=== PATIENT | male | born 1990 | race African-American/Black ===

== ENCOUNTER 2025-04-15 06:55 | Observation (INO) ==
--- NOTE | 2025-04-15 07:17 | Emergency Department Note ---
Impression & Plan Rectal bleeding, LLQ abdominal pain ED Provider Note NAME: FLETCHER GLASS AGE: 34 SEX: M : 1990 ARRIVES VIA: Walk-In INFORMANT: [Patient] ED PROVIDER(S): [Ernesto Zimmerman MD] CHIEF COMPLAINT: Abdominal pain, rectal bleeding HISTORY OF PRESENT ILLNESS: The patient is a 34-year-old male who states that a few days ago, he had a bowel movement and there was blood mixed with his stool. Yesterday evening, he began having increased amounts of blood and a few times, when having a bowel movement, he just passed blood. He has noticed some diffuse abdominal pain as well. He also has rectal pain. There has been no fever, no nausea or vomiting, he did not faint. He is not short of breath. He is not on blood thinning agents. No history of previous GI bleeding. PMHx/PSHx/Social Hx: See Below PHYSICAL EXAM: GENERAL: Patient is in no acute distress. HEENT: No acute trauma, normocephalic atraumatic, mucous membranes moist, no nasal congestion. NECK: No stridor, no adenopathy, no meningismus, trachea is midline. LUNGS: Clear to auscultation bilaterally, no wheeze, no rhonchi, breath sounds equal. HEART: Without murmurs gallops or rubs, regular rate and rhythm. ABDOMEN: Soft, tender in the left lower quadrant with palpation. No distention. EXTREMITIES: No cyanosis, full range of motion of all the joints without pain or difficulty. NEUROLOGIC: Oriented x 3, no acute motor or sensory deficits, no focal weakness. SKIN: No jaundice, no diaphoresis. Rectal: This exam was done with a securities sales associate. There was no external source for bleeding. No hemorrhoid or anal tear. Digital exam did not reveal any masses but there was some bright red blood that did of course test positive. Stool seemed brown. DIFFERENTIAL DIAGNOSIS: Diverticulitis, diverticular bleeding, internal hemorrhoid, proctitis, anemia, among others. EMERGENCY DEPARTMENT PROCEDURES: MEDICAL DECISION MAKING: There is no leukocytosis. A very mild anemia was seen with a hemoglobin of 13.6. There was a normal platelet count. No bandemia. No coagulopathy. No renal failure or significant electrolyte abnormality. No concerning liver enzyme elevation. Abdominal and pelvis CT did not show any diverticulitis or acute surgical process. No source for bleeding by CT imaging. On exam, there was no external/anal source for his bleeding. Digital rectal exam did show bright red blood per rectum with some brown stool. The patient received IV saline for hydration. He was given IV Zofran, IV morphine and eventually IV Dilaudid. He was given IV Pepcid. Patient presents with left lower quadrant abdominal pain and bright red blood per rectum. The source for the bleeding at this point is not clear. Given the pain and ongoing bleeding, I do think admission/observation would be warranted. The patient's hemoglobin can be trended. I did speak with the patient and case management, the on-call hospitalist was consulted. Prior/Outside records/notes reviewed: None ECG per my interpretation: Indication was GI bleeding. The ECG shows a normal sinus rhythm with a rate of 63. There is some sinus arrhythmia. There is no acute ST elevation, no PVCs. The QTc is 401. Continuous Cardiac Monitoring per my interpretation: An order was placed for continuous cardiac monitoring. The monitor shows a rate of 77 with normal sinus rhythm. Imaging/x-ray results per my interpretation: Chronic Medical/Social conditions affecting care: None Care/Management discussed with: Case management, the on-call hospitalist. Level of care consideration(s): After review of the information above and other included data: --I believe the patient requires escalation of care to admission DISPOSITION: Admission Past Med/Surg History Problem List (Updated 04/15/25 @ 14:55 by Ernesto Zimmerman MD) LLQ abdominal pain (Acute) Rectal bleeding (Acute) Abdominal pain Medical History Hematochezia Social History Smoking Status: Current every day smoker Tobacco Type: Cigarettes Second Hand Exposure: Yes; Do You Dip or Chew Tobacco: No; Hx Alcohol Use: No Hx Substance Use: No Preferred Language: Citizen Of [place] Communication Ability: Effective Worship Pastor Required: No Beliefs That Will Affect Care: None Current Living Situation: Alone Feels Safe at Home: Yes Assistive Devices: None Allergies Allergies Allergy/AdvReac Type Severity Reaction Status Date / Time No Known Allergies Allergy Unverified 04/15/25 09:54 Home Meds Home Medications Medication Instructions Recorded Confirmed No Known Home Medications 04/15/25 04/15/25 Results & Data (ED) Vital Signs Vital Signs - 24 hr 04/15/25 06:58 04/15/25 07:20 04/15/25 07:20 Temperature 36.1 C L 36.8 C Temperature Source Temporal Artery Scan Oral Pulse Rate 77 68 Pulse Rate [Right Finger] 66 Respiratory Rate 16 18 18 Respiratory Effort / Characteristics Non-Labored Spontaneous Respiratory Depth Normal Normal Blood Pressure 149/103 H Blood Pressure [Right Arm] 136/91 Blood Pressure Mean 118 Blood Pressure Mean [Right Arm] 106 Pulse Oximetry 99 98 99 Oxygen Delivery Method Room Air Room Air Room Air Sepsis Recent Fever Within 48 Hours No Sepsis New/Unexplained Change in Mental Status No Sepsis Action Taken by Nursing No Action Required 04/15/25 08:18 04/15/25 09:00 Temperature Temperature Source Pulse Rate 65 Pulse Rate [Right Finger] 67 Respiratory Rate 16 Respiratory Effort / Characteristics Respiratory Depth Normal Blood Pressure Blood Pressure [Right Arm] 127/83 Blood Pressure Mean Blood Pressure Mean [Right Arm] 97 Pulse Oximetry 98 Oxygen Delivery Method Sepsis Recent Fever Within 48 Hours Sepsis New/Unexplained Change in Mental Status Sepsis Action Taken by Group Home Medications Current Medication List: was personally reviewed by me Laboratory Data Attestation: I reviewed the patient's lab results. 04/15/25 07:26 04/15/25 07:26 Lab Results 04/15/25 04/15/25 04/15/25 Range/Units 07:13 07:23 07:26 WBC 7.23 (4.8-10.8) K/ul RBC 4.98 (4.70-6.10) M/uL Hgb 13.6 L (14.0-18.0) g/dl Hct 41.5 L (42.0-52.0) % MCV 83.3 (80.0-100.0) fL MCH 27.3 (25.0-34.0) pg MCHC 32.8 (32.0-36.0) g/dL RDW Std Deviation 42.5 (36.4-46.3) fL RDW Coeff of Rubi 13.9 (11.5-14.5) % Plt Count 210 (130-400) K/uL MPV 12.0 (9.4-12.4) fL Immature Gran % (Auto) 0.1 % Neut % (Auto) 59.1 % Lymph % (Auto) 28.9 % [place] % (Auto) 6.8 % Eos % (Auto) 4.7 % Baso % (Auto) 0.4 % Neut # (Auto) 4.27 (1.40-6.50) K/uL Lymph # (Auto) 2.09 (1.20-3.40) K/uL [place] # (Auto) 0.49 (0.11-0.59) K/uL Eos # (Auto) 0.34 (0.00-0.50) K/uL Baso # (Auto) 0.03 (0.00-0.20) K/uL Immature Gran # (Auto) 0.01 (0.01-0.20) K/uL PT Cancelled INR Cancelled APTT Cancelled PTT Ratio Cancelled Sodium 138 (136-145) mmol/L Potassium 4.1 (3.5-5.1) mmol/L Chloride 106 (98-107) mmol/L Carbon Dioxide 27 (21-32) mmol/L Anion Gap 5 (3-11) BUN 14 (6-23) mg/dl Creatinine 1.09 (0.6-1.4) mg/dl Est Cr Clr Drug Dosing 97.7 ml/min eGFR 91.33 BUN/Creatinine Ratio 12.8 (10-20) Glucose 94 (70-99(Fasting)) mg/dl Calcium 8.8 (8.6-10.3) mg/dl Total Bilirubin 0.6 (0.2-1.0) mg/dl AST 48 H (13-39) U/L ALT 41 (7-52) U/L Alkaline Phosphatase 67 (34-104) U/L Total Protein 6.8 (6.0-8.3) gm/dl Albumin 4.4 (3.4-5.0) gm/dl Globulin 2.4 L (2.5-4.0) gm/dl Albumin/Globulin Ratio 1.8 (0.9-2) POC Stool Occult Blood Positive A (Negative) Blood Type A Positive Antibody Screen NEGATIVE 04/15/25 Range/Units 08:58 WBC (4.8-10.8) K/ul RBC (4.70-6.10) M/uL Hgb (14.0-18.0) g/dl Hct (42.0-52.0) % MCV (80.0-100.0) fL MCH (25.0-34.0) pg MCHC (32.0-36.0) g/dL RDW Std Deviation (36.4-46.3) fL RDW Coeff of Rubi (11.5-14.5) % Plt Count (130-400) K/uL MPV (9.4-12.4) fL Immature Gran % (Auto) % Neut % (Auto) % Lymph % (Auto) % [place] % (Auto) % Eos % (Auto) % Baso % (Auto) % Neut # (Auto) (1.40-6.50) K/uL Lymph # (Auto) (1.20-3.40) K/uL [place] # (Auto) (0.11-0.59) K/uL Eos # (Auto) (0.00-0.50) K/uL Baso # (Auto) (0.00-0.20) K/uL Immature Gran # (Auto) (0.01-0.20) K/uL PT 10.6 INR 1.0 APTT 30 PTT Ratio 1.1 Sodium (136-145) mmol/L Potassium (3.5-5.1) mmol/L Chloride (98-107) mmol/L Carbon Dioxide (21-32) mmol/L Anion Gap (3-11) BUN (6-23) mg/dl Creatinine (0.6-1.4) mg/dl Est Cr Clr Drug Dosing ml/min eGFR BUN/Creatinine Ratio (10-20) Glucose (70-99(Fasting)) mg/dl Calcium (8.6-10.3) mg/dl Total Bilirubin (0.2-1.0) mg/dl AST (13-39) U/L ALT (7-52) U/L Alkaline Phosphatase (34-104) U/L Total Protein (6.0-8.3) gm/dl Albumin (3.4-5.0) gm/dl Globulin (2.5-4.0) gm/dl Albumin/Globulin Ratio (0.9-2) POC Stool Occult Blood (Negative) Blood Type Antibody Screen Administered Medications Acetaminophen (Acetaminophen 500 Mg Tab) 1,000 mg PO TID PRN PRN Reason: Pain Stop: 05/15/25 13:59 Last Admin: 04/15/25 11:49 Dose: 1,000 mg Documented By: YOKO Lactated Ringer's (Lr) 1,000 mls @ 125 mls/hr IV .Q8H NATALIIA Stop: 04/16/25 05:10 Last Admin: 04/15/25 13:42 Dose: 125 mls/hr Documented By: DAYSI Discontinued Medications Hydromorphone HCl (Hydromorphone Inj 0.5 Mg/0.5 Ml Syr) 0.5 mg IV NOW STA Stop: 04/15/25 08:41 Last Admin: 04/15/25 08:45 Dose: 0.5 mg Documented By: truong Sodium Chloride (Nss) 1,000 mls @ 999 mls/hr IV .Q1H1M NATALIIA Stop: 04/15/25 08:15 Last Infusion: 04/15/25 08:43 Dose: Infused Documented By: truong Admin: 04/15/25 07:48 Dose: 999 mls/hr Documented By: truong Famotidine (Pepcid 20mg Iv Push) 20 mg in 5 mls @ 2.5 mls/min IV NOW STA Stop: 04/15/25 07:14 Last Admin: 04/15/25 07:44 Dose: 2.5 mls/min Documented By: truong Ioversol (Optiray 320 100ml) 94 ml IV ONCE ONE Stop: 04/15/25 08:32 Last Admin: 04/15/25 08:31 Dose: 94 ml Documented By: ANAM Morphine Sulfate (Morphine Sulfate 4 Mg/Ml 1 Ml Carp\Vial) 4 mg IV NOW STA Stop: 04/15/25 07:14 Last Admin: 04/15/25 07:43 Dose: 4 mg Documented By: truong Ondansetron HCl (Ondansetron Inj 2 Mg/Ml 2 Ml Vial) 4 mg IV ONE STA Stop: 04/15/25 07:14 Last Admin: 04/15/25 07:44 Dose: 4 mg Documented By: truong Pantoprazole Sodium (Pantoprazole 40 Mg Tab) 40 mg PO NOW STA Stop: 04/15/25 13:12 Last Admin: 04/15/25 13:47 Dose: 40 mg Documented By: DAYSI Imaging Data Radiologist's Impression: Abdomen/Pelvis CT 04/15/25 07:13 CT SCAN OF THE ABDOMEN AND PELVIS WITH IV CONTRAST CLINICAL HISTORY: Hematochezia. Left lower quadrant abdominal pain. COMPARISON STUDY: No priors TECHNIQUE: Following the IV administration of 94 cc of Optiray 320, CT scan of the abdomen and pelvis is performed from the lung bases to the proximal femora. Images are reviewed in the axial, sagittal, and coronal planes. IV contrast was administered without complication. A dose lowering technique was utilized adhering to the principles of ALARA. CT DOSE: 850.84 mGy.cm FINDINGS: Lung bases: The heart is normal in size and without pericardial effusion. The lung bases are clear. Liver: The contrast-enhanced liver is normal in size, contour, and attenuation. There is no intrahepatic biliary ductal dilatation. The hepatic veins and portal veins are patent. Gallbladder: Unremarkable. Spleen: Normal in size and attenuation. Pancreas: Unremarkable. Adrenal glands: Unremarkable. Kidneys: The contrast enhanced kidneys are normal in size and without hydronephrosis. The kidneys enhance symmetrically. Abdominal vasculature: The abdominal aorta is normal in course and caliber. Bowel: There is no bowel obstruction. The appendix is no identified and postsurgical changes seen adjacent to cecum. Peritoneum: There is no intraperitoneal free air or abdominal ascites. There is a fat-containing umbilical hernia. Lymphadenopathy: None. Pelvic viscera: The bladder, prostate, and seminal vesicles are normal as visualized. Skeletal structures: No lytic or blastic lesions are seen. IMPRESSION: No acute infectious or inflammatory findings are identified in the abdomen or pelvis. ACT 112: Negative or not required by law. Electronically signed by: Ernesto Breaux M.D. 04/15/2025 8:55 AM Discharge Plan Visit Data Chief Complaint: Abdominal Pain Stated Complaint: STOMACH PAIN AND BLOOD IN STOOL ED Provider: Ernesto Zimmerman Discharge Problem: Rectal bleeding, LLQ abdominal pain Patient Disposition: Admitted As Inpatient Condition: Fair Discharge Instructions Interventions: ED Discharge Assessment Last Done: 04/15/25 12:46
[2025-04-15] MEDS: MoRPHine SULFATE 4 MG/ML 1 ML CARP\\VIAL IV STA (07:43)
[2025-04-15] MEDS: ONDANSETRON INJ 2 MG/ML 2 ML VIAL IV STA (07:44)
[2025-04-15] MEDS: FAMOTIDINE 20MG IV PUSH 20 MG/5 ML SYR IV STA (07:44)
[2025-04-15] MEDS: SODIUM CHLORIDE 0.9% 1,000 ML IV SCH (07:48)
[2025-04-15 08:03] LABS: Hematocrit (blood only) 41.5 % (42.0-52.0); Hemoglobin 13.6 g/dl (14.0-18.0); Immature Granulocytes # (auto) 0.01 K/uL (0.01-0.20); Immature Granulocytes % (auto) 0.1 %; Mean Corpuscular Hemoglobin 27.3 pg (25.0-34.0); Mean Corpuscular Volume 83.3 fL (80.0-100.0); Platelet Count 210 K/uL (130-400); RDW Standard Deviation 42.5 fL (36.4-46.3); Red Blood Count 4.98 M/uL (4.70-6.10); White Blood Count 7.23 K/ul (4.8-10.8)
[2025-04-15 08:23] LABS: Alanine Aminotransferase 41.0 U/L (7-52); Albumin Globulin Ratio 1.8 (0.9-2); Alkaline Phosphatase 67.0 U/L (34-104); Anion Gap 5.0 (3-11); Bilirubin,Total 0.6 mg/dl (0.2-1.0); Blood Urea Nitrogen 14.0 mg/dl (6-23); Calcium 8.8 mg/dl (8.6-10.3); Carbon Dioxide 27.0 mmol/L (21-32); Chloride 106.0 mmol/L (98-107); Creatinine Clr Calc Pharmacy 97.7 ml/min; Globulin 2.4 gm/dl (2.5-4.0); Glucose 94.0 mg/dl (70-99(Fasting)); Potassium 4.1 mmol/L (3.5-5.1); Sodium 138.0 mmol/L (136-145); Total Protein 6.8 gm/dl (6.0-8.3)
[2025-04-15] MEDS: OPTIRAY 320 100ml IV ONE (08:31)
[2025-04-15] MEDS: HYDROmorphone INJ 0.5 MG/0.5 ML SYR IV STA (08:45)
--- NOTE | 2025-04-15 08:57 | CT Scan Report ---
CT SCAN OF THE ABDOMEN AND PELVIS WITH IV CONTRAST CLINICAL HISTORY: Hematochezia. Left lower quadrant abdominal pain. COMPARISON STUDY: No priors TECHNIQUE: Following the IV administration of 94 cc of Optiray 320, CT scan of the abdomen and pelvi s is performed from the lung bases to the proximal femora. Images are reviewed in the axial, sagittal , and coronal planes. IV contrast was administered without complication. A dose lowering technique wa s utilized adhering to the principles of ALARA. CT DOSE: 850.84 mGy.cm FINDINGS: Lung bases: The heart is normal in size and without pericardial effusion. The lung bases are clear. Liver: The contrast-enhanced liver is normal in size, contour, and attenuation. There is no intrahepa tic biliary ductal dilatation. The hepatic veins and portal veins are patent. Gallbladder: Unremarkable. Spleen: Normal in size and attenuation. Pancreas: Unremarkable. Adrenal glands: Unremarkable. Kidneys: The contrast enhanced kidneys are normal in size and without hydronephrosis. The kidneys enh ance symmetrically. Abdominal vasculature: The abdominal aorta is normal in course and caliber. Bowel: There is no bowel obstruction. The appendix is no identified and postsurgical changes seen ad jacent to cecum. Peritoneum: There is no intraperitoneal free air or abdominal ascites. There is a fat-containing umbi lical hernia. Lymphadenopathy: None. Pelvic viscera: The bladder, prostate, and seminal vesicles are normal as visualized. Skeletal structures: No lytic or blastic lesions are seen. IMPRESSION: No acute infectious or inflammatory findings are identified in the abdomen or pelvis. ACT 112: Negative or not required by law. Electronically signed by: Ernesto Breaux M.D. 04/15/2025 8:55 AM
[2025-04-15 09:40] LABS: INR 1.0 (0.9-1.1); Partial Thromboplastin Time 30 Seconds (21-31); Prothrombin Time 10.6 Seconds (9.0-12.0)
--- NOTE | 2025-04-15 10:50 | History & Physical Report ---
Date of Service April 15, 2025 Assessment & Plan (1) Hematochezia: (2) Abdominal pain: Plan 34-year-old male with a history of intermittent rectal bleeding according to him who is not from the area who presents with abdominal pain and hematochezia. #Abdominal pain hematochezia. Patient will have stool BioFire and C. difficile testing. He lactated Ringer's. IV famotidine and p.o. pantoprazole. He is recommended strongly to have an outpatient colonoscopy scheduled once he returns to his home repeat laboratories in the morning to see if hemoglobin drops if so we may consider consultation with gastroenterology. 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 Patient presents with bright red blood per rectum. Patient says he intermittently has this issue and was supposed to have an endoscopy a year ago but did not follow through. Patient states that he was feeling fine until he ate some spicy noodles a week ago he became significantly constipated. That resolved on its own and then 1 day prior to presentation he felt early satiety and fullness. He then began having bright red blood per rectum and presents. Patient has had no fevers or chills. He denies drinking any untreated water although he is working very remotely on this pipeline. He has had no recent weight loss he has no family history of colon malignancy or inflammatory bowel disease. He has had an appendectomy. He said no other changes in his health with exception of some darkened urine which coincided with his constipation is a since resolved. In the emergency department the patient has a normal white count stable hemoglobin and a CT abdomen pelvis without comment of inflammation of the colon. Rectal exam performed by the emergency room physician showed bright red blood but no masses. Emergency room request observation for bright red blood per rectum and abdominal pain. The patient did require parenteral opiates in the emergency department. Allergies Allergy/AdvReac Type Severity Reaction Status Date / Time No Known Allergies Allergy Unverified 04/15/25 09:54 Home Medications Medication Instructions Recorded Confirmed Type No Known Home Medications 04/15/25 04/15/25 History Past Med/Surg History Problem List (Updated 04/15/25 @ 10:49 by John Paul Bellamy MD) Abdominal pain Hematochezia Social History Smoking Status: Current every day smoker Preferred Language: Czech Feels Safe at Home: Yes Physical Exam Physical Exam: The patient appeared well nourished and normally developed. Vital signs as documented. Head exam is normocephalic atraumatic Neck is without JVD, thyromegaly, or carotid bruits. Lungs are clear to auscultation, no focal loss of breath sounds Cardiac exam, Rhythm is regular.. No murmurs, rubs or gallops. Abdominal exam reveals normal bowel sounds soft abdomen some mild epigastric pain and some mild left lower quadrant pain no rebound or guarding. Extremities are nonedematous and both pedal pulses are present Neurologic exam is alert and oriented, no focal loss of strength or sensation Skin is without bruises or rashes Psychologically is without concerns for anxiety or depression.. Results & Data Results & Data Vital Signs (Past 12 Hours) Vital Signs Temp Pulse Pulse Resp BP BP Pulse Ox 04/15/25 09:00 67 16 127/83 98 04/15/25 08:18 65 04/15/25 07:20 68 18 99 04/15/25 07:20 98.2 F 66 18 136/91 98 04/15/25 06:58 97.0 F L 77 16 149/103 H 99 O2 Del Method 04/15/25 09:00 04/15/25 08:18 04/15/25 07:20 Room Air 04/15/25 07:20 Room Air 04/15/25 06:58 Room Air Laboratory Results Reviewed CBC reviewed chemistry reviewed CT scan Reviewed EKG showing sinus rhythm to sinus bradycardia Ordered stool BioFire and C. difficile testing Code Status & VTE Plan VTE Prophylaxis Plan VTE Prophylaxis will be ordered: Yes PG Care Time/CCT Total # of Minutes Spent Total Time Spent with Patient: Total time spent is greater than 50% in coordination of care (as documented) at patient's floor/unit and/or counseling patient: Coding Level of Care Code 10246 INT INP/OBS CARE 2/55MIN Diagnoses Hematochezia K92.1 Abdominal pain R10.9
[2025-04-15] MEDS: ACETAMINOPHEN 500 MG TAB PO PRN (11:49)
[2025-04-15] MEDS ORDERED: ALUMINUM/MAGNESIUM SUSP 30 ML UDC PO PRN (13:11)
[2025-04-15] MEDS ORDERED: ONDANSETRON INJ 2 MG/ML 2 ML VIAL IV PRN (13:11)
[2025-04-15] MEDS: LACTATED RINGER'S 1,000 ML IV SCH (13:42)
[2025-04-15] MEDS: MoRPHine SULFATE 2 MG/ML CARP IV PRN (19:02)
[2025-04-15] MEDS: POLYETHYLENE (MIRALAX) 17 GM PACK PO PRN (20:48)
[2025-04-15] MEDS: FAMOTIDINE 20 MG TAB PO SCH (20:48)
[2025-04-16 07:13] LABS: Hematocrit (blood only) 39.2 % (42.0-52.0); Hemoglobin 12.6 g/dl (14.0-18.0); Mean Corpuscular Hemoglobin 27.2 pg (25.0-34.0); Mean Corpuscular Volume 84.5 fL (80.0-100.0); Platelet Count 201 K/uL (130-400); RDW Standard Deviation 42.5 fL (36.4-46.3); Red Blood Count 4.64 M/uL (4.70-6.10); White Blood Count 5.47 K/ul (4.8-10.8)
[2025-04-16 08:06] LABS: Anion Gap 5.0 (3-11); Blood Urea Nitrogen 11.0 mg/dl (6-23); Calcium 8.6 mg/dl (8.6-10.3); Carbon Dioxide 27.0 mmol/L (21-32); Chloride 106.0 mmol/L (98-107); Creatinine Clr Calc Pharmacy 87.3 ml/min; Glucose 112.0 mg/dl (70-99(Fasting)); Potassium 4.4 mmol/L (3.5-5.1); Sodium 138.0 mmol/L (136-145)
[2025-04-16] MEDS: KETOROLAC TROMETHAMINE 15 MG/ML VIAL IV PRN (09:24)
[2025-04-16] MEDS: POLYETHYLENE (MIRALAX) 17 GM PACK PO SCH (09:30)
[2025-04-16] MEDS: HYDROCORTISONE ACETATE 25 MG SUPP PR ONE (09:46)
--- NOTE | 2025-04-16 09:57 | Gastrointestinal Consultation ---
Date of Consultation April 16, 2025 Assessment & Plan (1) Rectal bleeding: (2) Abdominal pain: Plan Patient admitted with complaints of abdominal pain and rectal bleeding that he has had on and off for the past year. I had discussed the case with Dr. Mohan. - Would recommend that he pursue a colonoscopy in the outpatient setting. -Further recommendations to come with Supervising GI provider on medical rounds. Please see co-signature comments. Supervising Physician Co-Signing Physician Notes Hospital labs, data, records and imaging reviewed. The case was discussed with the GI LING and I agree with his assessment plan as outlined above. The patient has rectal bleeding which is most likely anal outlet in nature with relatively stable hemoglobin. He is a globally low risk for colorectal cancer. Colonoscopy is warranted for definitive evaluation however. This is recommended on an outpatient basis. A high-fiber diet while maintaining regular soft stools is recommended. The patient was discharged prior to a direct bedside evaluation. History of Present Illness Reason for Consultation: Pt request hematochezia Requesting Physician: John Paul Bellamy MD Attending Physician: Naresh Penaloza MD History of Present Illness Patient is a 34 year old male who presented to the ED on 04/15/25 for evaluation of abdominal pain and rectal bleeding that he has had intermittently over the past year. he admits that these symptoms come and go. He is originally from [place] and was supposed to have a colonoscopy there but did not have done secondary to insurance issues. 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 he tells me that he can get his stomach pain several days a week, but not every day. Bleeding can also come and go. He denies any family history of IBD. Upon work up in the ED, he had CT that was unremarkable. Initially hgb was 13.6. stools tested positive for blood in the ED. Since admission, he tells me that he still has some abdominal discomfort. The remainder of the GI ROS were unremarkable. 04/15/25 No acute infectious or inflammatory findings are identified in the abdomen or pelvis. 04/16/25 wbc 5.47, hgb 12.6, hct 39.2, plts 201, Na 138, K 4.4, BUN 11, Cr 1.21. stool studies pending. Allergies Allergy/AdvReac Type Severity Reaction Status Date / Time No Known Allergies Allergy Unverified 04/15/25 09:54 Home Medications Medication Instructions Recorded Confirmed Type hydrocortisone acetate 25 mg 25 mg NM BID 10 days #19 ea 04/16/25 Rx rectal suppository (Anusol-HC) pantoprazole 40 mg tablet,delayed 40 mg PO BID #60 tabs 04/16/25 Rx release Patient History Medical History Hematochezia Social History Smoking Status: Current every day smoker Tobacco Type: Cigarettes Second Hand Exposure: Yes; Do You Dip or Chew Tobacco: No; Hx Alcohol Use: No Hx Substance Use: No Preferred Language: Latvian Communication Ability: Effective Tree Worker Required: No Beliefs That Will Affect Care: None Current Living Situation: Alone Feels Safe at Home: Yes Assistive Devices: None Review of Systems Review of Systems: All systems reviewed & are unremarkable except as noted in HPI & below Physical Exam Constitutional: WD/WN, vitals as above Respiratory: normal respiratory effort, lungs clear to auscultation Cardiovascular: Rate/Rhythm: regular rate and regular rhythm Gastrointestinal (Abdomen): left sided tenderness to palpation, no guarding, soft, normal bowel sounds. Psychiatric: Orientation: alert and oriented x 3 Results & Data Vital Signs (Past 12 Hours) Vital Signs Temp Pulse Resp BP Pulse Ox O2 Del Method 04/16/25 07:16 97.7 F 63 16 119/73 98 Room Air 04/15/25 21:55 97.9 F 60 16 113/73 98 Room Air Coding Level of Care Code 65803 IN/OBS CONSULT LVL 4,60M Diagnoses Rectal bleeding K62.5 Abdominal pain R10.9
[2025-04-16 10:02] LABS: Adenovirus F 40/41 PCR Not Detected (NotDetected); Campylobacter PCR Not Detected (NotDetected); Enteroaggregative E.coli(EAEC) Not Detected (NotDetected); Shiga-like Toxin E.coli (STEC) Not Detected (NotDetected); Vibrio species PCR Not Detected (NotDetected)
--- NOTE | 2025-04-16 10:58 | Discharge Summary ---
Discharge Summary Date of Service April 16, 2025 Principal Dx & Hospital Course #1 = Principal Diagnosis (1) Hematochezia: (2) Abdominal pain: Plan 34-year-old male with a history of intermittent rectal bleeding according to him who is not from the area who presents with abdominal pain and hematochezia. #Abdominal pain/ hematochezia. CTAP negative. CBC w/ stable hgb of 12.6, 1g drop overnight secondary to diluation from IVF. BMP w/ stable renal function & electrolytes Stool biofire negative for acute infection. GI consulted --> recommending outpatient colonoscopy. Start Senna S tablets on discharge to help w/ constipation as this is suspected of being underlying cause of abdominal pain. Patient will require a CN in his home state as he is traveling for work at this time. Discussed w/ patient to notify his PCP of this. Pantoprazole sent on discharge to aide with GERD symptoms. Anusol suppositories on discharge to aide w/ internal hemorrhoids. Discharged home 04/16. 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 Patient presents with bright red blood per rectum. Patient says he intermittently has this issue and was supposed to have an endoscopy a year ago but did not follow through. Patient states that he was feeling fine until he ate some spicy noodles a week ago he became significantly constipated. That resolved on its own and then 1 day prior to presentation he felt early satiety and fullness. He then began having bright red blood per rectum and presents. Patient has had no fevers or chills. He denies drinking any untreated water although he is working very remotely on this pipeline. He has had no recent weight loss he has no family history of colon malignancy or inflammatory bowel disease. He has had an appendectomy. He said no other changes in his health with exception of some darkened urine which coincided with his constipation is a since resolved. In the emergency department the patient has a normal white count stable hemoglobin and a CT abdomen pelvis without comment of inflammation of the colon. Rectal exam performed by the emergency room physician showed bright red blood but no masses. Emergency room request observation for bright red blood per rectum and abdominal pain. The patient did require parenteral opiates in the emergency department. Discharge Exam General: NAD, VS as above Resp: normal respiratory effort abd: lower abdominal tenderness to palpation. hypoactive BS. Extremities: Moves all extremities, no edema Neuro: A&O x3, Skin: intact, no lesions noted Discharge Plan Discharge Items Patient Disposition: Home - Self-Care Reason For Visit: HEMATOCHEZIA, ABD PAIN Discharge Diagnosis: Constipation, rectal bleeding. Condition on Discharge: Fair Activity: Resume your previous activity Non-emergency contact: Primary Care Provider Call non-emergency contact if: you have any medication questions, your symptoms worsen and you have a fever Follow-up/Referrals: PCP,NO [Primary Care Provider] - Diet: Low Fiber Addtl Attending Provider Instructions: Mr. Real, You were recently hospitalized secondary to abdominal pain and rectal bleeding. Your CAT scan of your abdomen has been negative. Medications: Medications that have been sent to your pharmacy: Pantoprazole 40mg twice daily - this medication is to help with indigestion/abdominal discomfort/GERD. Please take this first thing in the morning and prior to bed. Anusol suppository twice daily for 10 days. - your next dose will be this evening prior to bed. This will help with your rectal bleeding if it is secondary to internal hemorrhoids. OTC medications recommended to be picked up include: SennaS, Please take 1-2 tablets once daily until bowels return to normal and it does not cause pain to have a bowel movement. Take your medications as instructed; do not skip a dose of your medicines. Make sure all of your doctors know every medicine you are taking (including ovfy-kea-dlrxmus medicines, vitamins, and supplements). Call your primary care provider before taking any new medicines (including over- the-counter medicines, vitamins, and supplements), because some of these may interact with your current medications, or may make your symptoms worse. Tell your primary care provider if you cannot afford your medications. Activity: You can do normal everyday activities as your body allows. Take rest breaks if you feel tired. Do not overexert. Stop activity if you have pain, shortness of breath or feel dizzy. Follow-up appointments: Make an appointment with your primary care physician within one week of disch arge. A copy of this summary will be sent to them. Every time you see your primary care physician, or any other doctor, bring your medication list, and a list of questions. Please establish care with a communications maintainer at your home location. You will require a colonoscopy for further investigation on an outpatient basis. CONTACT YOUR PRIMARY CARE PROVIDER if you experience any of the following: Shortness of breath or difficulty breathing Fevers or chills Feeling tired with normal activity or experiencing dizziness or fainting Difficulty following your treatment plan, or difficulty taking medications CALL 911 OR GO TO THE EMERGENCY DEPARTMENT if you experience any of the following: Severe abdominal pain or nausea/vomiting Severe chest pain, or chest pain that radiates (moves) to your jaw or arm Sudden, severe shortness of breath or difficulty breathing Thank you for allowing us to participate in your care. Pending Studies at Discharge: No Stand-Alone Forms: [facility], Smoking Cessation Medications and DC Order Prescriptions: New hydrocortisone acetate [Anusol-HC] 25 mg suppository 25 mg ND BID 10 Days Qty: 19 0RF Rx Instructions: 1st suppository given in hospital, next dose this evening 04/16 prior to bed. pantoprazole 40 mg tablet,delayed release (DR/EC) 40 mg PO BID Qty: 60 0RF Discharge Orders: Discharge Order (Routine); Ordered 04/16/25 Ordered By: Tiffanie Hill Admission Data Admit Date/Time: 04/15/25 10:44 Attending Provider: Naresh Penaloza Admit Provider: John Paul Bellamy Primary Care Provider: PCP,NO Other Providers: John Paul Bellamy; Amrit Mohan Other Interventions: Discharge Summary Assessment (RN) Last Done: 04/16/25 13:25 Hospital Stay Data Consultations 04/15/25 10:27 ED Decision to Admit Stat 04/15/25 17:17 Consult Gastroenterology Routine Diagnostic Imagining Performed 04/15/25 07:13 CT abd pelvis IV con only Stat Pending Results Patient Have Any Pending Studies at Discharge: No Discharge Instructions Given to Patient (Per Discharging Provider) Mr. Real, Babak were recently hospitalized secondary to abdominal pain and rectal bleeding. Your CAT scan of your abdomen has been negative. Medications: Medications that have been sent to your pharmacy: Pantoprazole 40mg twice daily - this medication is to help with indigestion/abdominal discomfort/GERD. Please take this first thing in the morning and prior to bed. Anusol suppository twice daily for 10 days. - your next dose will be this evening prior to bed. This will help with your rectal bleeding if it is secondary to internal hemorrhoids. OTC medications recommended to be picked up include: SennaS, Please take 1-2 tablets once daily until bowels return to normal and it does not cause pain to have a bowel movement. Take your medications as instructed; do not skip a dose of your medicines. Make sure all of your doctors know every medicine you are taking (including bwnx-cds-mqkjnlv medicines, vitamins, and supplements). Call your primary care provider before taking any new medicines (including over- the-counter medicines, vitamins, and supplements), because some of these may interact with your current medications, or may make your symptoms worse. Tell your primary care provider if you cannot afford your medications. Activity: You can do normal everyday activities as your body allows. Take rest breaks if you feel tired. Do not overexert. Stop activity if you have pain, shortness of breath or feel dizzy. Follow-up appointments: Make an appointment with your primary care physician within one week of discharge. A copy of this summary will be sent to them. Every time you see your primary care physician, or any other doctor, bring your medication list, and a list of questions. Please establish care with a communications maintainer at your home location. You will require a colonoscopy for further investigation on an outpatient basis. CONTACT YOUR PRIMARY CARE PROVIDER if you experience any of the following: Shortness of breath or difficulty breathing Fevers or chills Feeling tired with normal activity or experiencing dizziness or fainting Difficulty following your treatment plan, or difficulty taking medications CALL 911 OR GO TO THE EMERGENCY DEPARTMENT if you experience any of the following: Severe abdominal pain or nausea/vomiting Severe chest pain, or chest pain that radiates (moves) to your jaw or arm Sudden, severe shortness of breath or difficulty breathing Thank you for allowing us to participate in your care. Supervising Physician Co-Signing Physician Notes The patient was not seen by me. The chart was reviewed. Case discussed with LEON Betancourt. Agree with assessment and plan Total Time Total Time Spent Total Time Spent (In Minutes): 35 Total Time Includes: Examination of the Patient, Discharge Planning and Medication Reconciliation Coding Level of Care Code 16497 INP/OBS DISCH >30 MIN Diagnoses Hematochezia K92.1 Abdominal pain R10.9
--- NOTE | 2025-04-17 06:32 | Electrocardiogram Report ---
Test Reason : Blood Pressure : */* mmHG Vent. Rate : 63 BPM Atrial Rate : 63 BPM P-R Int : 136 ms QRS Dur : 98 ms QT Int : 392 ms P-R-T Axes : 32 72 48 degrees QTcB Int : 401 ms Normal sinus rhythm with sinus arrhythmia Normal ECG No previous ECGs available Confirmed by Sotero Mireles ([id number]) on 04/17/2025 6:32:12 AM Referred By: REFERRED SELF Confirmed By: Sotero Mireles
== END 2025-04-16 14:20 | disposition home or self-care (01) ==
LOC: ED 06:55 → 3N 06:55 → SUATTDRO 10:44 → 3N 12:46